=== PATIENT | female | born 1960 | race Caucasian/White ===

== ENCOUNTER 2016-09-27 04:36 | Emergency (ER) | payer BC ==
[2016-09-27] MEDS ORDERED: MORPHINE SULFATE 4 MG/ML SYRINGE IVP STA (05:28)
[2016-09-27] MEDS ORDERED: ONDANSETRON 4 MG/2 ML VIAL IVP STA ×2 (05:28→06:30)
[2016-09-27] MEDS ORDERED: KETOROLAC 30 MG/ML 1 ML VIAL IVP STA (05:31)
[2016-09-27] MEDS ORDERED: SODIUM CHLORIDE 0.9% 1,000 ML IV STA ×2 (05:54)
[2016-09-27] MEDS ORDERED: SODIUM CHLORIDE 0.9% 500 ML IV STA (05:54)
[2016-09-27 06:07] LABS: Basophils # (A) 0.1 k/uL (0-0.2); Basophils % (A) 1 %; CH 32.6; CHCM 35.7; Eosinophils # (A) 0.2 k/uL (0-0.7); Eosinophils % (A) 2 %; HCT 43.7 % (34.0-46.0); HDW 2.91; HGB 15.1 gm/dL (11.4-16.0); Luc # (Auto) 0.25; Luc % (Auto) 3; Lymphocytes # (A) 1.8 k/uL (1.0-4.8); Lymphocytes % (A) 18 %; MCH 31.7 pg (25.0-35.0); MCHC 34.5 g/dL (31.0-37.0); MCV 91.8 fL (80.0-100.0); Mean Platelet Volume 7.6; Monocytes # (A) 0.6 k/uL (0-1.0); Monocytes % (A) 6 %; Neutrophils # (A) 6.8 k/uL (1.3-7.7); Neutrophils % (A) 70 %; RBC 4.76 m/uL (3.80-5.40); RDW 13.5 % (11.5-15.5); WBC 9.7 k/uL (3.8-10.6); WBC (Perox) 9.62
--- NOTE | 2016-09-27 06:11 | ED ---
General Adult HPI - General Chief complaint: Back Pain/Injury Stated complaint: back pain Time Seen by Provider: 09/27/16 05:15 Source: patient, RN notes reviewed, old records reviewed Mode of arrival: ambulatory Limitations: no limitations - History of Present Illness Initial comments: This is a 48-year-old female here for evaluation of pain. Severe flank pain. Right sided flank pain rating to groin. Sudden onset 2 AM this morning. Increased nausea and vomiting. No history of prior similar symptoms, mild decrease in urination. No blood noted in her urine. Again patient has no abdominal pain no chest pain or shortness of breath, mildly slightly secondary to pain. States is the worst pain she is a peripheral nerve life. - Related Data Home Medications Medication Instructions Recorded Confirmed Hydrochlorothiazide [Hydrodiuril] 25 mg PO DAILY 07/24/14 03/24/16 Metoprolol Succinate [Toprol XL] 100 mg PO DAILY 07/24/14 03/24/16 Loratadine [Claritin] 10 mg PO DAILY 03/24/16 03/24/16 Multivitamins, Thera [Multivitamin] 1 tab PO DAILY 03/24/16 03/24/16 Previous Rx's Medication Instructions Recorded Albuterol Inhaler [Ventolin Hfa 1 - 2 puff INHALATION Q6HR PRN #2 07/24/14 Inhaler] puff HYDROcodone/APAP 5-325MG [[place] 1 tab PO Q6HR PRN #30 tab 09/27/16 5-325] Naproxen [Naprosyn] 500 mg PO Q12HR #60 tab 09/27/16 Ondansetron [Zofran] 4 mg PO Q8HR PRN #30 tab 09/27/16 Tamsulosin [Flomax] 0.4 mg PO DAILY #30 cap 09/27/16 Allergies Allergy/AdvReac Type Severity Reaction Status Date / Time citalopram hydrobromide Allergy Unknown Verified 09/27/16 07:10 [From Celexa] codeine Allergy Unknown Verified 09/27/16 07:10 iv dye Allergy Unknown Uncoded 09/27/16 04:42 Review of Systems ROS Statement: Those systems with pertinent positive or pertinent negative responses have been documented in the HPI. ROS Other: All systems not noted in ROS Statement are negative. Past Medical History Past Medical History: Asthma, Cancer, Hypertension Additional Past Medical History / Comment(s): Uterine CA History of Any Multi-Drug Resistant Organisms: None Reported Past Surgical History: Hysterectomy, Orthopedic Surgery Past Anesthesia/Blood Transfusion Reactions: Family History of Problems w/ Anesthesia Additional Past Anesthesia/Blood Transfusion Reaction / Comment(s): mother gets nauseated Past Psychological History: No Psychological Hx Reported Smoking Status: Never smoker Past Alcohol Use History: None Reported Past Drug Use History: None Reported - Past Family History Mother Family Medical History: No Reported History General Exam Limitations: no limitations General appearance: alert, in no apparent distress, anxious Head exam: Present: atraumatic, normocephalic, normal inspection Eye exam: Present: normal appearance, PERRL, EOMI. Absent: scleral icterus, conjunctival injection, periorbital swelling ENT exam: Present: normal exam, mucous membranes moist Neck exam: Present: normal inspection. Absent: tenderness, meningismus, lymphadenopathy Respiratory exam: Present: normal lung sounds bilaterally. Absent: respiratory distress, wheezes, rales, rhonchi, stridor Cardiovascular Exam: Present: regular rate, normal rhythm, normal heart sounds. Absent: systolic murmur, diastolic murmur, rubs, gallop, clicks GI/Abdominal exam: Present: soft, normal bowel sounds. Absent: distended, tenderness, guarding, rebound, rigid Extremities exam: Present: normal inspection, full ROM, normal capillary refill. Absent: tenderness, pedal edema, joint swelling, calf tenderness Back exam: Present: normal inspection Neurological exam: Present: alert, oriented X3, CN II-XII intact Psychiatric exam: Present: normal affect, normal mood Skin exam: Present: warm, dry, intact, normal color. Absent: rash Course Vital Signs 09/27/16 09/27/16 04:40 06:58 Temperature 98.3 F 97.8 F Pulse Rate 71 65 Respiratory 20 18 Rate Blood Pressure 212/102 132/59 O2 Sat by Pulse 96 96 Oximetry - Reevaluation(s) Reevaluation #1: 09/27/16 06:10 At this point patient's pain is much improved, no nausea vomiting at this time Medical Decision Making - Medical Decision Making 48 female here for evaluation of right flank pain. Severe right-sided flank pain sudden onset this morning. Patient has positive kidney stone, no urinary tract infection, patient can be discharged home - Lab Data Result diagrams: 09/27/16 05:03 09/27/16 05:03 Lab Results 09/27/16 09/27/16 09/27/16 Range/Units 05:03 05:03 05:03 WBC 9.7 (3.8-10.6) k/uL RBC 4.76 (3.80-5.40) m/uL Hgb 15.1 (11.4-16.0) gm/dL Hct 43.7 (34.0-46.0) % MCV 91.8 (80.0-100.0) fL MCH 31.7 (25.0-35.0) pg MCHC 34.5 (31.0-37.0) g/dL RDW 13.5 (11.5-15.5) % Plt Count 237 (150-450) k/uL Neutrophils % 70 % Lymphocytes % 18 % Monocytes % 6 % Eosinophils % 2 % Basophils % 1 % Neutrophils # 6.8 (1.3-7.7) k/uL Lymphocytes # 1.8 (1.0-4.8) k/uL Monocytes # 0.6 (0-1.0) k/uL Eosinophils # 0.2 (0-0.7) k/uL Basophils # 0.1 (0-0.2) k/uL Sodium 140 (137-145) mmol/L Potassium 4.8 (3.5-5.1) mmol/L Chloride 105 (98-107) mmol/L Carbon Dioxide 22 (22-30) mmol/L Anion Gap 13 mmol/L BUN 17 (7-17) mg/dL Creatinine 0.85 (0.52-1.04) mg/dL Est GFR (MDRD) Af Amer >60 (>60 ml/min/1.73 sqM) Est GFR (MDRD) Non-Af >60 (>60 ml/min/1.73 sqM) Glucose 174 H (74-99) mg/dL Calcium 10.9 H (8.4-10.2) mg/dL Total Bilirubin 0.9 (0.2-1.3) mg/dL AST 50 H (14-36) U/L ALT 65 H (9-52) U/L Alkaline Phosphatase 101 (38-126) U/L Total Creatine Kinase 56 (30-135) U/L CK-MB (CK-2) 0.9 (0.0-2.4) ng/mL CK-MB (CK-2) Rel Index 1.6 Troponin I <0.012 (0.000-0.034) ng/mL Total Protein 8.1 (6.3-8.2) g/dL Albumin 4.5 (3.5-5.0) g/dL Amylase 56 (30-110) U/L Lipase 235 (23-300) U/L Urine Color Urine Appearance (Clear) Urine pH (5.0-8.0) Ur Specific [place] (1.001-1.035) Urine Protein (Negative) Urine Glucose (UA) (Negative) Urine Ketones (Negative) Urine Blood (Negative) Urine Nitrite (Negative) Urine Bilirubin (Negative) Urine Urobilinogen (<2.0) mg/dL Ur Leukocyte Esterase (Negative) Urine RBC (0-5) /hpf Urine WBC (0-5) /hpf Ur Squamous Epith Cells (0-4) /hpf Urine Bacteria (None) /hpf Hyaline Casts (0-2) /lpf Urine Mucus (None) /hpf 05// Range/Units 05:03 WBC (3.8-10.6) k/uL RBC (3.80-5.40) m/uL Hgb (11.4-16.0) gm/dL Hct (34.0-46.0) % MCV (80.0-100.0) fL MCH (25.0-35.0) pg MCHC (31.0-37.0) g/dL RDW (11.5-15.5) % Plt Count (150-450) k/uL Neutrophils % % Lymphocytes % % Monocytes % % Eosinophils % % Basophils % % Neutrophils # (1.3-7.7) k/uL Lymphocytes # (1.0-4.8) k/uL Monocytes # (0-1.0) k/uL Eosinophils # (0-0.7) k/uL Basophils # (0-0.2) k/uL Sodium (137-145) mmol/L Potassium (3.5-5.1) mmol/L Chloride (98-107) mmol/L Carbon Dioxide (22-30) mmol/L Anion Gap mmol/L BUN (7-17) mg/dL Creatinine (0.52-1.04) mg/dL Est GFR (MDRD) Af Amer (>60 ml/min/1.73 sqM) Est GFR (MDRD) Non-Af (>60 ml/min/1.73 sqM) Glucose (74-99) mg/dL Calcium (8.4-10.2) mg/dL Total Bilirubin (0.2-1.3) mg/dL AST (14-36) U/L ALT (9-52) U/L Alkaline Phosphatase (38-126) U/L Total Creatine Kinase (30-135) U/L CK-MB (CK-2) (0.0-2.4) ng/mL CK-MB (CK-2) Rel Index Troponin I (0.000-0.034) ng/mL Total Protein (6.3-8.2) g/dL Albumin (3.5-5.0) g/dL Amylase (30-110) U/L Lipase (23-300) U/L Urine Color Light Yellow Urine Appearance Clear (Clear) Urine pH 5.0 (5.0-8.0) Ur Specific [place] 1.012 (1.001-1.035) Urine Protein Trace H (Negative) Urine Glucose (UA) Negative (Negative) Urine Ketones Negative (Negative) Urine Blood Moderate H (Negative) Urine Nitrite Negative (Negative) Urine Bilirubin Negative (Negative) Urine Urobilinogen <2.0 (<2.0) mg/dL Ur Leukocyte Esterase Small H (Negative) Urine RBC 12 H (0-5) /hpf Urine WBC 2 (0-5) /hpf Ur Squamous Epith Cells 1 (0-4) /hpf Urine Bacteria Rare H (None) /hpf Hyaline Casts 1 (0-2) /lpf Urine Mucus Rare H (None) /hpf Disposition Clinical Impression: Renal calculus, left Disposition: HOME SELF-CARE Condition: Good Instructions: Kidney Stones (ED) Prescriptions: HYDROcodone/APAP 5-325MG [[place] 5-325] 1 tab PO Q6HR PRN #30 tab PRN Reason: Pain Naproxen [Naprosyn] 500 mg PO Q12HR #60 tab Ondansetron [Zofran] 4 mg PO Q8HR PRN #30 tab PRN Reason: Nausea Tamsulosin [Flomax] 0.4 mg PO DAILY #30 cap Referrals: Rudolph Leary MD [STAFF PHYSICIAN] - 1-2 days
[2016-09-27 06:16] LABS: Appearance,Urine Clear (Clear); Bacteria,Urine Rare /hpf; Bilirubin,Urine Negative (Negative); Glucose,Urine (UA) Negative (Negative); Ketones,Urine Negative (Negative); Leukocyte Esterase,Urine Small (Negative); Mucus,Urine Rare /hpf; Nitrite,Urine Negative (Negative); Particle Count 1830; Protein,Urine Trace (Negative); RBC,Urine 12 /hpf (0-5); Specific Gravity,Urine 1.012 (1.001-1.035); Squamous Epithelial Cell,Urine 1 /hpf (0-4); UA Billing (MACRO vs. MICRO) MICRO; Urobilinogen,Urine <2.0 mg/dL (<2.0); WBC,Urine 2 /hpf (0-5)
[2016-09-27 06:18] LABS: Amylase 56 U/L (30-110); Anion Gap 13 mmol/L; Calcium 10.9 mg/dL (8.4-10.2); Carbon Dioxide 22 mmol/L (22-30); Chloride 105 mmol/L (98-107); Glucose 174 mg/dL (74-99); Non-African American GFR(MDRD) >60 (>60 ml/min/1.73 sqM); Sodium 140 mmol/L (137-145); Total Bilirubin 0.9 mg/dL (0.2-1.3)
[2016-09-27 06:20] LABS: Potassium 4.8 mmol/L (3.5-5.1)
[2016-09-27 06:21] LABS: Total Protein 8.1 g/dL (6.3-8.2)
[2016-09-27 06:23] LABS: Blood Urea Nitrogen 17 mg/dL (7-17)
[2016-09-27 06:24] LABS: ALT 65 U/L (9-52); AST 50 U/L (14-36); Alkaline Phosphatase 101 U/L (38-126)
[2016-09-27 06:29] LABS: Creatine Kinase 56 U/L (30-135)
[2016-09-27 06:41] LABS: Creatine Kinase MB 0.9 ng/mL (0.0-2.4); Troponin I <0.012 ng/mL (0.000-0.034)
[2016-09-27 06:59] VITALS: BP 132/59; PULSE 65; RESP 18; TEMP 97.8
--- NOTE | 2016-09-27 07:25 | CT ---
EXAMINATION TYPE: CT abdomen pelvis wo con DATE OF EXAM: 09/27/2016 6:57 AM COMPARISON: NONE HISTORY: 56-year-old female with right lower back pain CT DLP: 1744 mGycm. Automated exposure control for dose reduction was used. TECHNIQUE: Contiguous axial scanning of the abdomen and pelvis without IV contrast. Coronal and sagit marty reconstructions performed. FINDINGS: The heart is normal size without pericardial effusion. Some curvilinear pleural parenchymal scarring at the posterior right base. No pleural effusion. There is hepatomegaly at 19.3 cm craniocaudal with diffuse low attenuation of the hepatic parenchyma. Gallbladder is nondistended but shows some dependent calculi measuring up to 8 mm. Adrenal glands, spleen, and pancreas show no gross abnormality by CT technique. 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 The right kidney is slightly malrotated and shows mild hydronephrosis and asymmetric right ureteral d ilatation. There may be a couple punctate 1 to 2 mm calculi in the mid right ureter, axial image 60 b ut an additional punctate 2 mm calculus at the distal ureter just prior to the right UVJ, axial image 76. Normal appendix. No dilated small bowel, free fluid, or free air. Scattered mesenteric lymph nodes. A few these are mildly enlarged measuring up to 9 mm, coronal image 46 and are probably reactive/post inflammatory. Mild sigmoid diverticulosis without pericolonic inflammatory change. Bladder partially urine distended. Multiple pelvic phleboliths. Uterus and ovaries are surgically abs ent. Small external iliac chain lymph nodes are present, some are borderline prominent measuring up t o 8 mm on the right. No abnormal fluid collection in the pelvis. Bones: There appears to be old pin tract within the proximal right femur. Mild degenerative changes o f the right hip. Facet arthropathy in the lower lumbar spine and degenerative disc disease mid and lo wer lumbar spine. Grade 1 anterolisthesis at L4-L5. IMPRESSION: 1. A 3 mm obstructive calculus in the distal right ureter. There is mild hydronephrosis and hydroure ter. There are also a couple 1 to 2 mm calculi in the mid right ureter. 2. A 2.9 cm lesion in the lateral left kidney contains soft tissue and macroscopic fat. Findings pro bably represent an AML. However, as some RCC's can contain macroscopic fat, a 3 month follow-up exam is recommended. 3. Hepatomegaly and marked hepatic steatosis. Correlate with LFTs, lipid profile, and patient risk f actors. 4. There are some scattered mildly enlarged mesenteric lymph nodes which are probably reactive/post inflammatory. Given the patient's oncologic history, these can also be reassessed on the patient's fo llow-up exam. 5. Cholelithiasis and sigmoid diverticulosis.
== END 2016-09-27 07:41 | disposition home or self-care (01) ==
LOC: EC 04:36
DX: N20.0 Calculus of kidney (principal); R11.2 Nausea with vomiting, unspecified; I10 Essential (primary) hypertension; Z79.899 Other long term (current) drug therapy; Z88.8 Allergy status to other drugs, medicaments and biological substances; Z88.5 Allergy status to narcotic agent; Z91.041 Radiographic dye allergy status
CPT/HCPCS: 99284; 96374; 96375 ×2; 96376; 96361 ×2; 36415; 80053; 82150; 82550; 82553; 83690; 84484; 85025; 81001; 87086; 74176; J2270; J2405; J1885

== ENCOUNTER → 2018-07-11 | Outpatient (CLI) | payer BC ==
--- NOTE | 2018-07-15 08:14 | MM ---
Reason for exam: screening (asymptomatic). Last mammogram was performed 1 year and 2 months ago. History: Patient is postmenopausal and has history of endometrial cancer at age 46. Took progesterone beginning at age 37. Physical Findings: A clinical breast exam by your physician is recommended on an annual basis and results should be correlated with mammographic findings. MG 3D Screening Mammo W/Cad Bilateral CC and MLO view(s) were taken. XCCL view(s) were taken of the right breast. Prior study comparison: May 17, 2017, bilateral MG screening mammo w CAD. September 28, 2015, bilateral MG screening mammo w CAD. There are scattered fibroglandular densities. Finding: There are typically benign round, diffuse/scattered calcifications in the right breast. No significant changes in finding since May 17, 2017 and September 28, 2015. ASSESSMENT: Benign, BI-RAD 2 RECOMMENDATION: Routine screening mammogram of both breasts in 1 year.
== END | disposition home or self-care (01) ==
LOC: RADMAMWWP 11:07
PROVIDERS: ATTEND Family Medicine
DX: Z12.31 Encounter for screening mammogram for malignant neoplasm of breast (principal)
CPT/HCPCS: 77063; 77067

== ENCOUNTER → 2019-07-24 | Outpatient (CLI) | payer BC ==
--- NOTE | 2019-07-25 14:20 | MM ---
Reason for exam: screening (asymptomatic). Last mammogram was performed 1 year ago. History: Patient is postmenopausal and has history of endometrial cancer at age 46. Took progesterone beginning at age 37. Physical Findings: A clinical breast exam by your physician is recommended on an annual basis and results should be correlated with mammographic findings. MG 3D Screening Mammo W/Cad Bilateral CC and MLO view(s) were taken. XCCL view(s) were taken of the right breast. Prior study comparison: July 11, 2018, bilateral MG 3d screening mammo w/cad. May 17, 2017, bilateral MG screening mammo w CAD. There are scattered fibroglandular densities. Benign appearing calcifications in the right breast. No suspicious abnormality. No significant changes when compared with prior studies. ASSESSMENT: Benign, BI-RAD 2 RECOMMENDATION: Routine screening mammogram of both breasts in 1 year.
== END | disposition home or self-care (01) ==
LOC: RADMAMWWP 10:16
PROVIDERS: ATTEND Family Medicine
DX: Z12.31 Encounter for screening mammogram for malignant neoplasm of breast (principal)
CPT/HCPCS: 77063; 77067

== ENCOUNTER → 2020-11-16 | Outpatient (CLI) | payer BC ==
--- NOTE | 2020-11-17 14:02 | MM ---
Reason for exam: screening (asymptomatic). Last mammogram was performed 1 year and 4 months ago. History: Patient is postmenopausal and has history of endometrial cancer at age 46. Took progesterone beginning at age 37. Physical Findings: A clinical breast exam by your physician is recommended on an annual basis and results should be correlated with mammographic findings. MG 3D Screening Mammo W/Cad Bilateral CC and MLO view(s) were taken. Prior study comparison: July 24, 2019, bilateral MG 3d screening mammo w/cad. July 11, 2018, bilateral MG 3d screening mammo w/cad. There are scattered fibroglandular densities. There are benign appearing round calcifications in the right breast. No significant changes when compared with prior studies. ASSESSMENT: Benign, BI-RAD 2 RECOMMENDATION: Routine screening mammogram of both breasts in 1 year.
== END | disposition home or self-care (01) ==
LOC: RADMAMWWP 16:00
PROVIDERS: ATTEND Family Medicine
DX: Z12.31 Encounter for screening mammogram for malignant neoplasm of breast (principal); Z78.0 Asymptomatic menopausal state
CPT/HCPCS: 77063; 77067

== ENCOUNTER → 2020-11-19 | Outpatient (CLI) | payer BC ==
[2020-11-19 14:25] LABS: African American GFR (CKD) >90 (>60 ml/min/1.73 sqM); Blood Urea Nitrogen 16 mg/dL (7-17); Non-African American GFR(CKD) 79 (>60 ml/min/1.73 sqM)
--- NOTE | 2020-11-19 15:52 | CT ---
EXAMINATION TYPE: CT abdomen w con DATE OF EXAM: 11/19/2020 COMPARISON: 09/27/2016 INDICATION: Other specified disorders of kidney and ureter DLP: 2870.30 mGycm, Automated exposure control for dose reduction was used. CONTRAST: 100 ml mL of Isovue 300. Study performed with Oral Contrast TECHNIQUE: Axial images were obtained from above the diaphragm to the pubic rami in the axial plane a t 5 mm thick sections. Reconstructed images are reviewed on the computer in the coronal plane. FINDINGS: Limited CT sections are obtained the lung bases. Some atelectasis or infiltrate is in the posterior right lung base.. CT ABDOMEN: Liver: There is moderate fatty infiltration to the liver. Small amount of spurring may be present. No discrete masses are evident. Spleen: Normal Pancreas: Mildly atrophic Adrenal glands: The adrenal glands are normal. Gallbladder: Normal Kidneys: There is a mixed density mass measuring 2.9 cm on the posterior lateral left mid kidney. The re is some malrotation of the right kidney. No hydronephrosis is present. Peripelvic cysts are pres ent on the left. Delayed images were obtained through the kidneys, which remain unremarkable. Aorta: Vascular calcification is within the aorta. Inferior vena cava: Normal. Loops of bowel within the abdomen are normal. There are loops of bowel which are incompletely dis tended or lack oral contrast limiting their evaluation. IMPRESSIONS: 1. 2.9 cm mixed density mass posterior lateral left mid kidney. This is stable from comparison.
== END | disposition home or self-care (01) ==
LOC: RADCTMAIN 13:12
PROVIDERS: ATTEND Family Medicine
DX: N28.89 Other specified disorders of kidney and ureter (principal)
CPT/HCPCS: 82565; 84520; 74160; 36415; Q9967

== ENCOUNTER 2021-03-25 06:09 | Day surgery (SDC) | payer BC ==
[2021-03-23 16:02] VITALS: BMI 46.7
[2021-03-25 06:45] VITALS: RESP 18; TEMP 98.2
[2021-03-25 06:54] LABS: Glucose,Whole Blood 139 mg/dL (75-99)
[2021-03-25] MEDS: LACTATED RINGERS 1,000 ML IV SCH ×2 (07:00→07:07)
[2021-03-25] MEDS ORDERED: PROPOFOL 10 MG/ML 20 ML VIAL IV ONE (07:08)
--- NOTE | 2021-03-25 07:23 | P.PCN ---
Date of Procedure: 03/25/21 Procedure(s) Performed: BRIEF HISTORY: Patient is a 60-year-old pleasant white female scheduled for an elective colonoscopy as a part of evaluation of prior history of colon polyps. Last colonoscopy was 5 years ago. PROCEDURE PERFORMED: Colonoscopy snare polypectomy. PREOPERATIVE DIAGNOSIS: History of colon polyps. IV sedation per Anesthesia. PROCEDURE: After informed consent was obtained, the patient, was brought into the endoscopy unit. IV sedation was administered by Anesthesia under continuous monitoring. Digital rectal examination was normal. Initially the Olympus CF-160 flexible video colonoscope was then inserted in the rectum, gradually advanced into the cecum without any difficulty. Careful examination was performed as the scope was gradually being withdrawn. Ileocecal valve and the appendiceal orifice were visualized and appeared normal. Prep was excellent. Mucosa of the cecum, ascending colon, transverse colon, descending colon, sigmoid colon, and rectum appeared normal. In the mid rectum there was a 5-6 mm sessile polyp that was removed by snare polypectomy. Retroflexion was performed in the rectum and no lesions were seen. The patient tolerated the procedure well. IMPRESSION: 5-6 mm sessile rectal polyp serous posterior polypectomy Rest of the colon appeared normal RECOMMENDATIONS: Findings of this examination were discussed with the patient as well as her family. She was advised to follow with the biopsy results. If the biopsy results adenoma she can have a repeat colonoscopy in 5 years..
[2021-03-25 07:33] LABS: Glucose,Whole Blood 145 mg/dL (75-99)
[2021-03-25 07:51] VITALS: BP 139/81; PULSE 58
== END 2021-03-25 08:06 | disposition home or self-care (01) ==
LOC: ORWHC2ENDO 06:09
PROVIDERS: ATTEND Internal Medicine Gastroenterology
DX: K62.1 Rectal polyp (principal); Z87.19 Personal history of other diseases of the digestive system; I10 Essential (primary) hypertension; E78.5 Hyperlipidemia, unspecified; G47.00 Insomnia, unspecified; E11.9 Type 2 diabetes mellitus without complications; Z79.84 Long term (current) use of oral hypoglycemic drugs; Z79.890 Hormone replacement therapy; M10.9 Gout, unspecified; Z85.51 Personal history of malignant neoplasm of bladder
CPT/HCPCS: 45385; J2704; 88305

== ENCOUNTER 2021-11-17 07:28 | Observation (INO) | payer BC ==
[2021-11-17] MEDS ORDERED: SODIUM CHLORIDE 0.9% 500 ML 500 ML IV STA (07:41)
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
[2021-11-17 08:20] LABS: Basophils # (A) 0.1 k/uL (0-0.2); Basophils % (A) 1 %; Eosinophils # (A) 0.2 k/uL (0-0.7); Eosinophils % (A) 2 %; HCT 41.7 % (34.0-46.0); HGB 14.4 gm/dL (11.4-16.0); Lymphocytes % (A) 26 %; MCH 32.4 pg (25.0-35.0); MCHC 34.4 g/dL (31.0-37.0); MCV 94.3 fL (80.0-100.0); Mean Platelet Volume 8.2; Monocytes # (A) 0.5 k/uL (0-1.0); Monocytes % (A) 7 %; Neutrophils # (A) 4.6 k/uL (1.3-7.7); Neutrophils % (A) 62 %; Platelet Count 229 k/uL (150-450); RBC 4.42 m/uL (3.80-5.40); RDW 13.2 % (11.5-15.5); WBC 7.5 k/uL (3.8-10.6)
[2021-11-17 08:31] LABS: Albumin 4.3 g/dL (3.5-5.0); Calcium 9.8 mg/dL (8.4-10.2); Magnesium 1.6 mg/dL (1.6-2.3); Potassium 4.2 mmol/L (3.5-5.1); Total Bilirubin 0.5 mg/dL (0.2-1.3); Total Protein 7.3 g/dL (6.3-8.2)
[2021-11-17 08:45] LABS: INR 0.9 (<1.2); Partial Thromboplastin Time 22.4 sec (22.0-30.0); Prothrombin Time 10.1 sec (9.0-12.0)
--- NOTE | 2021-11-17 08:56 | XR ---
EXAMINATION TYPE: XR chest 2V DATE OF EXAM: 11/17/2021 COMPARISON: 07/24/2014 INDICATION: Dysrhythmia TECHNIQUE: Frontal and lateral views of the chest are obtained. FINDINGS: The heart size is normal. The pulmonary vasculature is normal. Some minimal subsegmental atelectasis at the right base is not excluded. Lung abbasi otherwise appear stable. IMPRESSION: 1. Minimal subsegmental atelectasis right lung base
[2021-11-17 09:40] LABS: Appearance,Urine Clear (Clear); Bilirubin,Urine Negative (Negative); Blood,Urine Negative (Negative); Color,Urine Colorless; Glucose,Urine (UA) Negative (Negative); Ketones,Urine Negative (Negative); Leukocyte Esterase,Urine Negative (Negative); Nitrite,Urine Negative (Negative); Protein,Urine Negative (Negative); Specific Gravity,Urine 1.005 (1.001-1.035); Urobilinogen,Urine <2.0 mg/dL (<2.0)
[2021-11-17] MEDS ORDERED: NALOXONE 0.4 MG/ML 1 ML VIAL IV PRN (10:11)
[2021-11-17] MEDS ORDERED: ACETAMINOPHEN TAB 325 MG TAB PO PRN (10:11)
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
[2021-11-17 11:24] LABS: Glucose,Whole Blood 157 mg/dL (70-110)
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
[2021-11-17 16:49] LABS: Glucose,Whole Blood 119 mg/dL (70-110)
[2021-11-17] MEDS: INSULIN ASPART (NovoLOG) 100 UNIT/ML VIAL SQ SCH ×2 (16:57→20:10)
[2021-11-17] MEDS: HEPARIN SODIUM,PORCINE/PF 5,000 UNIT/0.5 ML SYRINGE SQ SCH ×2 (17:22→20:25)
[2021-11-17 20:11] LABS: Glucose,Whole Blood 151 mg/dL (70-110)
[2021-11-17] MEDS ORDERED: ATORVASTATIN 20 MG TAB PO SCH (21:00)
[2021-11-17] MEDS ORDERED: METOPROLOL SUCCINATE (ER) 100 MG TAB.ER.24H PO SCH (21:00)
[2021-11-17] MEDS ORDERED: OXYBUTYNIN XL 5 MG TAB.ER.24 PO SCH (21:00)
[2021-11-17] MEDS ORDERED: LOSARTAN 50 MG TAB PO SCH (21:00)
[2021-11-17] MEDS ORDERED: allopurinoL 100 MG TAB PO SCH (21:00)
[2021-11-18 07:23] LABS: Glucose,Whole Blood 145 mg/dL (70-110)
[2021-11-18 07:52] VITALS: BP 141/72; PULSE 58; RESP 20; TEMP 98.2
[2021-11-18] MEDS: INSULIN ASPART (NovoLOG) 100 UNIT/ML VIAL SQ SCH (08:25)
[2021-11-18] MEDS: HEPARIN SODIUM,PORCINE/PF 5,000 UNIT/0.5 ML SYRINGE SQ SCH (08:26)
[2021-11-18] MEDS ORDERED: LOSARTAN 50 MG TAB PO SCH ×3 (09:00→21:00)
[2021-11-18] MEDS ORDERED: METOPROLOL SUCCINATE (ER) 50 MG TAB.ER.24H PO SCH (09:00)
--- NOTE | 2021-11-18 09:12 | P.PN ---
Progress Note - Text Please see full dictation by nurse practitioner 61-year-old female with palpitations Twelve-lead EKG documents R Venuti PVCs Mostly at rest and when she lies in the left side line currently undergoing ECG treatment for bladder cancer at [facility] Plan Discharge home today after 2-D echo and TSH Follow Dr. Timmons after 4-6 weeks Diabetes control per primary team Reduce metoprolol to 50 mrem daily succinate repeated in the morning not at night Increase losartan 200 mg in the morning and 50 mg in the evening, total of 150 mg a day Lipid panel Hemoglobin A1c
--- NOTE | 2021-11-18 09:39 | P.DS ---
Providers Date of admission: 11/17/21 10:22 Expected date of discharge: 11/18/21 Attending physician: Mia Cohen, DO Consults: 11/17/21 10:11 Consult Physician Routine Consulting Provider: Joe Armstrong Consult Reason/Comments: palpitations Do you want consulting provider notified?: Yes, Notify in am Primary care physician: Javed [place] Hospital Course: Discharge Diagnosis: Palpitations, patient having frequent PVCs. Plan is for patient to follow-up outpatient in 5-[address] Timmons to discuss possibility of ablation and/or further recommendations after BCG treatments are completed. Hypertension. Monitor vital signs and document in daily log/journal. Please take losartan 100 mg each morning and then 50 mg nightly and metoprolol was decreased to 50 mg nightly. Hyperlipidemia. Continue daily medication regimen with atorvastatin. Type 2 diabetes mellitus, continue daily medication regimen with Glucophage Bladder cancer, continue BCG treatments at [facility] as advised by your oncologist. Hospital Course: Patient is a very pleasant 61-year-old female with a past medical history of hypertension, hyperlipidemia, [id number] diabetes mellitus, asthma, obstructive sleep apnea, and bladder cancer currently undergoing BCG treatments at [facility]. Patient presented to the emergency department with a chief complaint of palpitations. Patient reports these palpitations initially began about 12 years ago, but states over the past 2 weeks they have significantly worsened and she is getting approximately 5 or 6 episodes a day lasting anywhere from a few seconds up to 10 minutes at a time. She states she has underwent cardiac eliezer luation years ago for these complaints and was recently given a prescription to have stress test completed by her PCP but has not been able to complete secondary to currently undergoing BCG treatments at [facility] and just feeling rundown. Patient reports that last night her palpitations awoke her from sleep and seemed to be much worse, and this has never happened before so she decided to come to the emergency department for evaluation. Patient denies having any other associated factors including dizziness, lightheadedness, chest pain, shortness of breath, dyspnea with exertion, nausea, vomiting, or experiencing any numbness/tingling/weakness/swelling in her extremities. Patient denies having any recent medication changes with the exception of recently having her metformin increased. Patient denies caffeine intake or taking any herbal or vitamin supplements. Patient underwent full evaluation in the emergency department. CBC, coags, and CMP were unremarkable. D-dimer negative at 0.59 and troponin also negative at less than 0.012. EKG revealing normal sinus rhythm at 71 bpm with occasional PVCs. Chest x-ray negative for acute cardiopulmonary process with minimal subsegmental atelectasis at the right lung base. Patient has been admitted under our services with consultation to cardiology. Echocardiogram was completed. Patient was evaluated by cardiology and medication changes were made. Patient prescribed to take losartan 100 mg each morning and then 50 mg nightly and metoprolol was decreased to 50 mg nightly. Cardiology clearing patient for follow-up in their office in 5-6 weeks to further discuss possibility of ablation and/or further medication management after patient BCG treatments for her bladder cancer are completed. Patient to follow-up outpatient with cardiology office for echocardiogram results as they are not available and reports at this time. Patient is reports being free from any chest pain or other complaints at this time. Medically patient is stable and vital signs are unremarkable. Patient medically stable for discharge at this time and to follow up outpatient with PCP and cardiology as recommended. Patient also encouraged to follow up as scheduled with [facility] with her oncologist for continued BCG treatments. Physical exam: Vital signs reviewed and stable. General: Nontoxic, no distress and appears stated age. Derm: Skin warm and dry, normal coloration for ethnicity. Head: Atraumatic, normocephalic and symmetric. Eyes: EOMs intact, no lid lag, and anicteric sclera Mouth: no lip lesions, mucus membranes moist Cardiovascular: regular rate and rhythm with normal S1S2, no murmur, positive posterior tibial pulses bilaterally, and cap refill < 2 seconds. Lungs: Respirations even, regular, and unlabored on room air. Lungs CTA bilaterally, no rhonchi, no rales, no wheezing, and no accessory muscle usage. Abdominal: soft, nontender to palpation, no guarding, no appreciable organomegaly Ext: ROM intact. No gross muscle atrophy, no edema, no contractures Neuro: Speech clear, face symmetrical and CN II-XII grossly intact with no noted focal neuro deficits Psych: Alert and oriented to person, place, time, and situation. Appropriate and pleasant affect. A total of 36 minutes of time were spent preparing this complex discharge summary. Pt was discharged on 11/18/21 at 9:30 AM. Patient Condition at Discharge: Stable Plan - Discharge Summary Discharge Rx Participant: No New Discharge Prescriptions: New Losartan [Cozaar] 100 mg PO DAILY #60 tab Losartan [Cozaar] 50 mg PO HS #30 tab Metoprolol Succinate (ER) [Toprol XL] 50 mg PO DAILY 60 Days #60 tab Continue Loratadine [Claritin] 10 mg PO HS Atorvastatin [Lipitor] 20 mg PO HS Acetaminophen [Tylenol Extra Strength] 500 - 1,000 mg PO Q6H PRN PRN Reason: Pain metFORMIN HCL ER [Glucophage XR] 500 mg PO BID allopurinoL [Zyloprim] 100 mg PO HS Oxybutynin Chloride [Ditropan XL] 5 mg PO HS Discontinued Metoprolol Succinate [Toprol XL] 100 mg PO HS Losartan Potassium [Cozaar] 100 mg PO HS Discharge Medication List Loratadine [Claritin] 10 mg PO HS 03/24/16 [History] Acetaminophen [Tylenol Extra Strength] 500 - 1,000 mg PO Q6H PRN 03/23/21 [History] Atorvastatin [Lipitor] 20 mg PO HS 03/23/21 [History] allopurinoL [Zyloprim] 100 mg PO HS 03/23/21 [History] metFORMIN HCL ER [Glucophage XR] 500 mg PO BID 03/23/21 [History] Oxybutynin Chloride [Ditropan XL] 5 mg PO HS 11/17/21 [History] Losartan [Cozaar] 50 mg PO HS #30 tab 11/18/21 [Rx] Losartan [Cozaar] 100 mg PO DAILY #60 tab 11/18/21 [Rx] Metoprolol Succinate (ER) [Toprol XL] 50 mg PO DAILY 60 Days #60 tab 11/18/21 [Rx] Follow up Appointment(s)/Referral(s): Haris Timmons MD [STAFF PHYSICIAN] - 6 Weeks (Follow up with Dr. Timmons in 5-6 weeks Office will call with appointment time) Javed Rea DO [Primary Care Provider] - 1-2 days Activity/Diet/Wound Care/Special Instructions: Activity: As tolerated. Take breaks as needed. Diet: Heart healthy and carb consistent diet. Avoid salts, or foods with hidden salts such as canned or boxed foods and frozen dinners. Extra salt makes your heart work harder and traps the fluid in your body for longer. Special Instructions: Take all of your medications as directed and remember to keep all of your doctor's appointments and follow-up as needed. 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 Follow up with vtc technician, Dr. Timmons in 5-6 weeks. You have been cleared by cardiology and will receive your echocardiogram results at your follow-up appointment as these results were not available in the reports section at time of discharge. Thank you for allowing us to participate in your care, it was truly a pleasure having you for our patient!!! Discharge Disposition: HOME SELF-CARE
--- NOTE | 2021-11-18 09:42 | CA ---
Transthoracic Echo Report Name: Andreea Birch Age: 61 Gender: F : 1960 Exam Date: 11/17/2021 13:20 Exam Location: [place] [facility] Ht (in): 65 Wt (lb): 295 Ordering Physician: Daren Cheney Attending/Referring Phys: Shravan Mercedes;[id number] Steam Service Inspector Aniya Donis, EL Procedure CPT: Indications: palpitations Cardiac Hx: Morbid Obesity Technical Quality: Fair Contrast 1: Total Dose (mL): Contrast 2: Total Dose (mL): MEASUREMENTS (Male / Female) Normal Values M-MODE Aortic Root Diameter MM 2.8 cm LA Systolic Diameter MM 3.4 cm LA Ao Ratio MM 1.2 MV E Point Septal Separation 0.5 cm AV Cusp Separation MM 2.3 cm DOPPLER AV Peak Velocity 198.3 cm/s AV Peak Gradient 15.7 mmHg AV Mean Velocity 137.3 cm/s AV Mean Gradient 8.5 mmHg AV Velocity Time Integral 44.9 cm LVOT Peak Velocity 161.9 cm/s LVOT Peak Gradient 10.5 mmHg MV Area PHT 6.0 cm??? Mitral E Point Velocity 85.0 cm/s Mitral A Point Velocity 78.5 cm/s Mitral E to A Ratio 1.1 MV Deceleration Time 125.7 ms TR Peak Velocity 213.9 cm/s TR Peak Gradient 18.3 mmHg Right Ventricular Systolic Press 23.3 mmHg FINDINGS Left Ventricle Normal Left ventricular size, mild wall thickness, systolic function with no obvious regional wall motion abnormalities.left ventricular ejection fraction is estimated at 50-50 %. Right Ventricle Normal right ventricular size and function. Right Atrium Normal right atrial size. Left Atrium Mild left atrial dilatation. Mitral Valve Structurally normal mitral valve. Mild mitral regurgitation. Aortic Valve Trileaflet aortic valve. Tricuspid Valve No tricuspid regurgitation. Pulmonic Valve Pulmonic valve not well visualized. Pericardium Normal pericardium. Aorta Normal size aortic root and proximal ascending aorta. CONCLUSIONS Normal LV systolic function ejection fraction greater than 55% Normal RV size and function Left atrial enlargement Previewed by: Dr. Haris Timmons MD (Electronically Signed) Final Date: 18 November 2021 09:41
[2021-11-18 15:50] LABS: Chol/HDL Ratio 3.71 Ratio; LDL Cholesterol,Calculated 50.4 mg/dL (0.0-131.0)
[2021-11-18] MEDS ORDERED: METOPROLOL SUCCINATE (ER) 100 MG TAB.ER.24H PO SCH (21:00)
== END 2021-11-18 10:35 | disposition home or self-care (01) ==
LOC: EC 07:28 → 6NMEDSUR 10:22
PROVIDERS: ADMIT Internal Medicine; ATTEND Internal Medicine
DX: I49.3 Ventricular premature depolarization (principal); C67.9 Malignant neoplasm of bladder, unspecified; E11.9 Type 2 diabetes mellitus without complications; I10 Essential (primary) hypertension; J45.909 Unspecified asthma, uncomplicated; G47.33 Obstructive sleep apnea (adult) (pediatric); E78.5 Hyperlipidemia, unspecified; I34.0 Nonrheumatic mitral (valve) insufficiency; E66.01 Morbid (severe) obesity due to excess calories; Z68.42 Body mass index [BMI] 45.0-49.9, adult; Z79.84 Long term (current) use of oral hypoglycemic drugs; Z79.899 Other long term (current) drug therapy; Z88.5 Allergy status to narcotic agent; Z88.8 Allergy status to other drugs, medicaments and biological substances; Z91.041 Radiographic dye allergy status; Z85.42 Personal history of malignant neoplasm of other parts of uterus; Z87.440 Personal history of urinary (tract) infections; Z90.710 Acquired absence of both cervix and uterus; Z98.891 History of uterine scar from previous surgery; Z98.890 Other specified postprocedural states; Z80.52 Family history of malignant neoplasm of bladder; Z82.49 Family history of ischemic heart disease and other diseases of the circulatory system
CPT/HCPCS: 96360; 99285; 36415; 93005; 93306; 85379; 83880; 80061; 80053; 84443; 83735; 84484; 85025; 85610; 85730; 81003; 83036; 71046; G0378 ×2

== ENCOUNTER 2023-03-07 16:33 | Emergency (ER) | payer OTHER, BC ==
[2023-03-07 16:50] VITALS: RESP 16
[2023-03-07] MEDS ORDERED: KETOROLAC 15 MG/ML 1 ML VIAL IM STA (17:02)
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
--- NOTE | 2023-03-07 18:10 | XR ---
EXAMINATION TYPE: XR chest 2V DATE OF EXAM: 03/07/2023 5:34 PM CLINICAL INDICATION:Female, 62 years old with history of Difficulty breathing ; COMPARISON: Chest radiographs from 11/17/2021 TECHNIQUE: XR chest 2V Frontal and lateral views of the chest. FINDINGS: Lungs/Pleura: There is no evidence of pleural effusion, focal consolidation, or pneumothorax. Pulmonary vascularity: Unremarkable. Heart/mediastinum: Cardiomediastinal silhouette is unremarkable. Musculoskeletal: No acute osseous pathology. IMPRESSION: No acute cardiopulmonary disease/process.
[2023-03-07 18:49] VITALS: BP 146/76; PULSE 77; TEMP 98.7
== END 2023-03-07 18:47 | disposition home or self-care (01) ==
LOC: EC 16:33
DX: S29.012A Strain of muscle and tendon of back wall of thorax, initial encounter (principal); J45.909 Unspecified asthma, uncomplicated; E11.9 Type 2 diabetes mellitus without complications; I10 Essential (primary) hypertension; G47.30 Sleep apnea, unspecified; E78.5 Hyperlipidemia, unspecified; Z79.84 Long term (current) use of oral hypoglycemic drugs; Z79.899 Other long term (current) drug therapy; Z91.041 Radiographic dye allergy status; Z88.5 Allergy status to narcotic agent; Z88.8 Allergy status to other drugs, medicaments and biological substances; Z90.79 Acquired absence of other genital organ(s); V89.2XXA Person injured in unspecified motor-vehicle accident, traffic, initial encounter; Y92.411 Interstate highway as the place of occurrence of the external cause
CPT/HCPCS: 72072; 73140; 73590; 71046; 99284; 96372; J1885

== ENCOUNTER → 2023-03-09 | Outpatient (CLI) | payer BC ==
--- NOTE | 2023-03-13 14:52 | MM ---
Reason for Exam: Screening (asymptomatic). Last mammogram was performed 2 year(s) and 4 month(s) ago. Patient History: Menarche at age 12. First Full-Term at age 26. Left ovary removed at age 46. Right ovary removed at age 46. Hysterectomy at age 46. Postmenopausal. Patient has history of breast feeding. Endometrial cancer, age 46. Progesterone, from age 37 until age 45. Risk Values: Claire 5 year model risk: 1.6%. NCI Lifetime model risk: 6.6%. Prior Study Comparison: 07/11/2018 Bilateral Screening Mammogram, [facility]. 07/24/2019 Bilateral Screening Mammogram, [facility]. 11/16/2020 Bilateral Screening Mammogram, [facility]. Tissue Density: There are scattered fibroglandular densities. Findings: Analyzed By CAD. Appears symmetrical and stable. Multiple round calcifications are within the right breast no significant interval change is evident. No suspicious groups of microcalcifications, spiculated or lobular masses, architectural distortion or other secondary signs of malignancy are mammographically apparent. Overall Assessment: Benign, BI-RAD 2 Management: Screening Mammogram of both breasts in 1 year. A negative mammogram report should not preclude additional follow up of suspicious palpable abnormalities. Patient should continue monthly self breast exam. A clinical breast exam by your physician is recommended on an annual basis and results should be correlated with mammographic findings. Electronically signed and approved by: Roberto Hastings D.O. Radiologis
== END | disposition home or self-care (01) ==
LOC: RADMAMWWP 16:02
PROVIDERS: ATTEND Family Medicine
DX: Z12.31 Encounter for screening mammogram for malignant neoplasm of breast (principal); Z78.0 Asymptomatic menopausal state
CPT/HCPCS: 77063; 77067

== ENCOUNTER → 2024-04-07 | Outpatient (CLI) | payer BC, MEDICARE ==
[2024-04-07 09:29] LABS: African American GFR (CKD) 83 (>60 ml/min/1.73 sqM); Blood Urea Nitrogen 14 mg/dL (7-17); Non-African American GFR(CKD) 72 (>60 ml/min/1.73 sqM)
--- NOTE | 2024-04-07 10:55 | CT ---
EXAMINATION TYPE: CT urogram wo/w con CT DLP: 5493.70 mGycm, Automated exposure control for dose reduction was used. DATE OF EXAM: 04/07/2024 10:29 AM COMPARISON: CT abdomen 11/19/2020, CT abdomen pelvis 09/27/2016 CLINICAL INDICATION:Female, 63 years old with history of C67.8 MALIGNANT NEOPLASM BLADDER; [facility], Malig nant neoplasm of bladder. Having bladder removed in April. TECHNIQUE: Urogram of the abdomen and pelvis was performed before and after the administration of 100 cc of IV c ontrast Isovue 300 contrast. Delayed imaging was performed. Coronal and sagittal reformats were perfo rmed. One or more CT dose reduction strategies were utilized during this examination. 2D and 3D recon structions are performed to assist visualization of the urinary tract on a separate workstation. FINDINGS: GENITOURINARY: RIGHT KIDNEY AND URETER: No calculi. No hydronephrosis or hydroureter. No renal mass or other lesions . No urothelial lesions: no filling defect, dilation, stricture or wall thickening. LEFT KIDNEY AND URETER: No calculi. No hydronephrosis or hydroureter. Marginal increase in size of po sterior upper pole partially exophytic 3.4 x 3.0 cm lesion (series 6, image 34). Previously measured 3.0 x 2.9 cm. Demonstrates soft tissue and macroscopic fat again. Left-sided parapelvic cysts are dem onstrated. No urothelial lesions: no filling defect, dilation, stricture or wall thickening. URINARY BLADDER: Mildly well distended. No calculi identified. Contrast fills a third of the dependen t portion of bladder on delayed imaging without filling defect. REPRODUCTIVE: Posthysterectomy. ABDOMEN LIVER: Diffusely hypoattenuating, consistent with hepatic steatosis. No focal lesion. GALLBLADDER AND BILE DUCTS: Cholelithiasis. No biliary duct dilatation. PANCREAS: Unremarkable. SPLEEN: Unremarkable. ADRENAL GLANDS: Unremarkable. STOMACH AND BOWEL: A few sigmoid diverticula without evidence for acute diverticulitis. No focal luis l wall thickening or surrounding inflammatory changes.. No evidence of bowel obstruction. PERITONEUM: No evidence of pneumoperitoneum or free fluid. No enlarged lymph nodes greater than 1 cm short axis identified. VASCULATURE: No aortic aneurysm. MUSCULOSKELETAL: No acute osseous abnormalities. Grade 1 anterolisthesis of L4 on L5 without evidence of pars defects. Degenerative disc disease at L4-L5. SOFT TISSUE/ABDOMINAL WALL: Unremarkable. LOWER CHEST: Stable linear scarring within the right lower lobe. Mild prominence of the heart. IMPRESSION: 1. No definitive urinary bladder mass identified within limitations. No CT evidence for metastatic d isease. 2. Marginal increase in size of left renal upper pole mixed density mass most consistent with an ang iomyolipoma measuring up to 3.4 cm. Previously measured up to 3.0 cm when measured with similar techn ique on CT 11/19/2020. No new suspicious renal or ureteral lesions identified. 3. No evidence of urolithiasis. 4. Hepatic steatosis. 5. Cholelithiasis. [facility], , 04/07/2024 10:53 AM
== END | disposition home or self-care (01) ==
LOC: RADCTMAIN 08:54
PROVIDERS: ATTEND Urology
DX: C67.8 Malignant neoplasm of overlapping sites of bladder (principal); K76.0 Fatty (change of) liver, not elsewhere classified; K80.20 Calculus of gallbladder without cholecystitis without obstruction; N32.89 Other specified disorders of bladder; N28.89 Other specified disorders of kidney and ureter; Z85.51 Personal history of malignant neoplasm of bladder
CPT/HCPCS: 82565; 84520; 74178; 36415; 74400; Q9967

== ENCOUNTER → 2024-04-15 | Outpatient (CLI) | payer BC, MEDICARE ==
--- NOTE | 2024-04-15 11:07 | CT ---
EXAMINATION TYPE: CT chest wo con DATE OF EXAM: 04/15/2024 10:22 AM COMPARISON: 04/07/2024 CLINICAL INDICATION: Female, 63 years old with history of R91.1 SOLITARY PULMONARY NODULE C67.9 MIGUEL RAMIREZ NE; [facility], Solitary pulmonary nodule, hx bladder ca TECHNIQUE: Multiple axial images were obtained through the chest. Sagittal and coronal reformats were created for review. MIP was performed on a separate workstation. Contrast used: mL of (None if empty) Oral contrast used: (None if empty) CT DLP: 782 mGycm, Automated exposure control for dose reduction was used. FINDINGS: LUNGS/ PLEURA: Calcified granuloma in the left upper lung. No suspicious dominant nodules. No focal c onsolidation, pneumothorax or pleural effusion. Streaky atelectasis in the right lung base. AIRWAY: Patent and unremarkable. HEART: The heart is mildly increased in size.. MEDIASTINUM: No gross evidence of adenopathy. Calcified lymph nodes in the mediastinum. VASCULATURE: No aortic aneurysm. MUSCULOSKELETAL: No acute osseous abnormalities SOFT TISSUES/LYMPH NODES: Multiple calcified lesions are seen in the right breast. LOWER NECK: Enlarged left thyroid nodule extending into the superior mediastinum. UPPER ABDOMEN: Diffuse low-attenuation to the liver parenchyma. Gallstones in the gallbladder lumen. Left fat-containing renal lesion measuring 29 mm. IMPRESSION: 1. Left upper lung calcified granuloma. No suspicious pulmonary nodules. No evidence for lymphadenop athy. 2. Left renal lesion containing fat possibly representing angiomyolipoma. 3. Hepatic steatosis. 4. Cholelithiasis. Follow up recommendations for incidental pulmonary nodules, if there are any, are per [employer] [place] [employer] [employer] or [employer]. [email or web address].org/articles/[email or web address]?lang=us [facility], , 04/15/2024 11:05 AM
== END | disposition home or self-care (01) ==
LOC: RADCTMAIN 09:32
PROVIDERS: ATTEND Urology
DX: C67.9 Malignant neoplasm of bladder, unspecified (principal); R91.1 Solitary pulmonary nodule; J84.10 Pulmonary fibrosis, unspecified; K76.0 Fatty (change of) liver, not elsewhere classified; K80.20 Calculus of gallbladder without cholecystitis without obstruction; Z87.59 Personal history of other complications of pregnancy, childbirth and the puerperium; Z85.51 Personal history of malignant neoplasm of bladder
CPT/HCPCS: 71250

== ENCOUNTER 2024-05-28 06:20 | Emergency (ER) | payer BC, MEDICARE ==
[2024-05-28 06:25] VITALS: TEMP 97.8
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
[2024-05-28 07:13] LABS: Basophils % (A) 1 %; Eosinophils # (A) 0.4 k/uL (0-0.7); Eosinophils % (A) 5 %; HCT 37.1 % (34.0-46.0); HGB 12.6 gm/dL (11.4-16.0); Lymphocytes # (A) 1.8 k/uL (1.0-4.8); Lymphocytes % (A) 23 %; MCH 31.8 pg (25.0-35.0); MCHC 33.8 g/dL (31.0-37.0); MCV 93.8 fL (80.0-100.0); Mean Platelet Volume 8.3; Monocytes # (A) 0.6 k/uL (0-1.0); Monocytes % (A) 7 %; Neutrophils % (A) 64 %; Platelet Count 211 k/uL (150-450); RBC 3.96 m/uL (3.80-5.40); WBC 7.8 k/uL (3.8-10.6)
[2024-05-28] MEDS: FAMOTIDINE 20 MG/2 ML VIAL IV STA (07:17)
[2024-05-28] MEDS: diphenhydrAMINE 50 MG/ML 1 ML VIAL IVP STA (07:17)
[2024-05-28] MEDS: methylPREDNISolone SOD SUCCI 125 MG/2 ML VIAL IV STA (07:17)
[2024-05-28 07:24] LABS: INR 0.9 (<1.2); Partial Thromboplastin Time 22.8 sec (22.0-30.0); Prothrombin Time 10.3 sec (10.0-12.5)
[2024-05-28 07:49] LABS: ALT 29 U/L (4-34); AST 26 U/L (14-36); African American GFR (CKD) 77 (>60 ml/min/1.73 sqM); Albumin 4.1 g/dL (3.5-5.0); Alkaline Phosphatase 110 U/L (38-126); Anion Gap 11 mmol/L; Blood Urea Nitrogen 18 mg/dL (7-17); Carbon Dioxide 17 mmol/L (22-30); Chloride 111 mmol/L (98-107); Glucose 129 mg/dL (74-99); Non-African American GFR(CKD) 66 (>60 ml/min/1.73 sqM); Potassium 4.3 mmol/L (3.5-5.1); Sodium 139 mmol/L (137-145); Total Bilirubin 0.5 mg/dL (0.2-1.3); Total Protein 6.9 g/dL (6.3-8.2)
--- NOTE | 2024-05-28 08:37 | CT ---
EXAMINATION TYPE: CT abdomen pelvis w con DATE OF EXAM: 05/28/2024 8:12 AM COMPARISON: 04/07/2024 CLINICAL INDICATION: Female, 63 years old with history of Postsurgical abdominal pain, bleeding, blee ding after bladder surgery, bladder removal. TECHNIQUE: Axial images were obtained from above the diaphragm to the pubic rami in the axial plane a t 5 mm thick sections. Reconstructed images are reviewed on the computer in the coronal plane. CONTRAST: 100 mL of Isovue 300. Study performed without Oral Contrast DLP: 2411.3 mGycm, Automated exposure control for dose reduction was used. FINDINGS: Limited CT sections are obtained the lung bases. There is a small area of curvilinear density in the posterior right lung base may be some atelectasis.. CT ABDOMEN: Liver: Normal Spleen: Normal Pancreas: Normal Adrenal glands: The adrenal glands are normal. Gallbladder: Gallstones are present. Kidneys: There is a heterogenous mass posterior lateral right kidney measuring 3.3 cm. When measured in similar dimensions this is stable from the recent comparison.. Some mild bilateral hydronephrosis present. There is present. There is extension to the patient's neobladder right mid abdomen No cysts are present. Study is without intravenous contrast. Aorta: Vascular calcification is within the aorta. Inferior vena cava: Normal. CT PELVIS: Very minimal fluid is within the dependent pelvis. Loops of bowel within the abdomen and pelvis are normal. This study is without oral contrast. Appendix: Normal as visualized. This lies adjacent to the neobladder Urinary bladder: Resected. Neobladder appears be in the right upper hemipelvis with an ostomy in the midline. Genitourinary structures: Uterus and ovaries are not identified. Osseous structures: No suspicious lytic or sclerotic lesions. IMPRESSION: 1. No suspicious fluid collections suggest hematoma or hemorrhage. Some minimal free fluid appears t o be within the pelvis. Ostomy site appears unremarkable. 2. Stable appearance left renal mass. 3. Cholelithiasis. 4. Some minimal atelectasis suspected at the right lung base [facility], Workstation: [facility], 05/28/2024 8:34 AM
[2024-05-28 09:20] VITALS: BP 140/80; PULSE 68; RESP 16
== END 2024-05-28 09:19 | disposition home or self-care (01) ==
LOC: EC 06:20
DX: N99.820 Postprocedural hemorrhage of a genitourinary system organ or structure following a genitourinary system procedure (principal); Z88.5 Allergy status to narcotic agent; Z91.041 Radiographic dye allergy status
CPT/HCPCS: 36415; 80053; 83605; 85025; 85610; 85730; 74177; 99284; 96374; 96375; J1200; J3490; Q9967; J2919

== ENCOUNTER → 2024-10-16 | Outpatient (CLI) | payer BC, MEDICARE ==
--- NOTE | 2024-10-17 07:41 | MM ---
Reason for Exam: Screening (asymptomatic). Last mammogram was performed 1 year(s) and 7 month(s) ago. Patient History: Menarche at age 12. First Full-Term at age 26. Left ovary removed at age 46. Right ovary removed at age 46. Hysterectomy at age 46. Postmenopausal. Patient has history of breast feeding. Endometrial cancer, age 46. Progesterone, from age 37 until age 45. Risk Values: Claire 5 year model risk: 1.7%. NCI Lifetime model risk: 6.1%. Prior Study Comparison: 07/24/2019 Bilateral Screening Mammogram, [facility]. 11/16/2020 Bilateral Screening Mammogram, [facility]. 03/09/2023 Bilateral MG 3D screening mammo w/cad, [facility]. Tissue Density: The breasts are almost entirely fatty. Findings: Analyzed By CAD. Right breast: There is no suspicious group of microcalcifications or new suspicious mass. Benign-appearing calcifications right breast. Left breast: There is no suspicious group of microcalcifications or new suspicious mass. Benign-appearing calcifications left breast. Overall Assessment: Benign, BI-RAD 2 Management: Screening Mammogram of both breasts in [address] [facility] will attempt to contact patient to return for supplemental views and ultrasound if indicated. Patient should continue monthly self-breast exams. A clinical breast exam by your physician is recommended on an annual basis. This exam should not preclude additional follow-up of suspicious palpable abnormalities. Note on Claire scores and lifetime risk: 1. A Claire score greater than 3% is considered moderate risk. If this is the case, consider specialist referral to assess eligibility for a risk reducing agent. 2. If overall lifetime risk for the development of breast cancer is 20% or higher, the patient may qualify for future screening with alternating mammogram and breast MRI. [facility], , 10/17/2024 7:38 AM. Electronically signed and approved by: Ant Tello DO
== END | disposition home or self-care (01) ==
LOC: RADMAMWWP 14:54
PROVIDERS: ATTEND Family Medicine
DX: Z12.31 Encounter for screening mammogram for malignant neoplasm of breast (principal); R92.313 Mammographic fatty tissue density, bilateral breasts; R92.1 Mammographic calcification found on diagnostic imaging of breast; Z78.0 Asymptomatic menopausal state
CPT/HCPCS: 77063; 77067

== ENCOUNTER → 2024-12-04 | Outpatient (CLI) | payer BC, MEDICARE ==
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
== END | disposition home or self-care (01) ==
LOC: RADBDWWP 15:37
PROVIDERS: ATTEND Family Medicine
DX: M85.89 Other specified disorders of bone density and structure, multiple sites (principal); Z78.0 Asymptomatic menopausal state
CPT/HCPCS: 77080